=== PATIENT | male | born 1990 | race Caucasian/White ===

== ENCOUNTER 2017-03-21 19:38 | Emergency (ER) | payer BC ==
[~2017-03-21] VITALS: Ht 170.2 cm; Wt 53.5 kg
[2017-03-21 19:41] VITALS: BP 108/68
[2017-03-21] MEDS ORDERED: SENOKOT-S1 TA1 PO (20:19)
[2017-03-21] MEDS ORDERED: CITRATE OF MAG296 ML PO (20:19)
== END 2017-03-21 20:31 | disposition home or self-care (01) ==
LOC: ER 19:38
DX: K59.00 Constipation, unspecified (principal); F17.210 Nicotine dependence, cigarettes, uncomplicated